=== PATIENT | female | born 1935 | race Hispanic/Latino ===

== ENCOUNTER 2019-09-22 08:36 | Outpatient (CLI) | payer MEDICARE, OTHER ==
--- NOTE | 2019-09-22 09:36 | Mammography Report ---
DIGITAL SCREENING MAMMOGRAM WITH CAD, 09/22/2019 INDICATION: Routine screening mammography. Previous benign biopsies. TECHNIQUE: Digital bilateral 2D mammography was obtained in the craniocaudal and mediolateral obliq ue projections. This examination was interpreted with the benefit of Computer-Aided Detection analysi s. COMPARISON: 09/16/2018 FINDINGS: Breast Density: The breasts are almost entirely fatty. There is no evidence of dominant mass, suspicious calcifications or architectural distortion in eithe r breast. IMPRESSION: No mammographic evidence of malignancy. Follow up recommendation: Routine yearly BI-RADS Category 2: Benign. A "normal" or negative report should not discourage follow up or biopsy of a clinically significant f inding. A written summary of these findings will be mailed to the patient. The patient will be entered into a mammography reporting system which will generate a reminder letter for the patient's next appointmen t at the appropriate interval. The [employer] recommends yearly mammograms starting at age 40 and continuing as l mino as a woman is in good health. Breast MRI is recommended for women with an approximate 20-25% or greater lifetime risk of breast cancer, including women with a strong family history of breast or ova delroy cancer or who have been treated for Hodgkin's disease. Signer Name: Gordon Pearce MD Signed: 09/22/2019 9:31 AM Workstation Name: [id number]
== END 2019-09-22 08:37 | disposition home or self-care (01) ==
LOC: SPVWC 08:36
PROVIDERS: ATTEND Surgery
DX: Z12.31 Encounter for screening mammogram for malignant neoplasm of breast (principal)
CPT/HCPCS: 77067

== ENCOUNTER 2020-09-27 09:47 | Outpatient (CLI) | payer MEDICARE, OTHER ==
--- NOTE | 2020-09-27 17:56 | Mammography Report ---
DIGITAL SCREENING MAMMOGRAM WITH CAD, 09/27/2020 CLINICAL INFORMATION / INDICATION: Routine screening mammography. TECHNIQUE: Digital bilateral 2D mammography was obtained in the craniocaudal and mediolateral obliqu e projections. This examination was interpreted with the benefit of Computer-Aided Detection analysis . COMPARISON: 09/22/2019, 09/16/2018 FINDINGS: Breast Density: The breasts are almost entirely fatty. No dominant mass, suspicious calcifications, or architectural distortion in either breast. A clip is again seen along the posterior depth of the inner left breast. IMPRESSION: No mammographic evidence of malignancy. Follow up recommendation: Routine yearly BI-RADS Category 2: Benign. A "normal" or negative report should not discourage follow up or biopsy of a clinically significant f inding. A written summary of these findings will be mailed to the patient. The patient will be entered into a mammography reporting system which will generate a reminder letter for the patient's next appointmen t at the appropriate interval. The [employer] recommends yearly mammograms starting at age 40 and continuing as l mino as a woman is in good health. Breast MRI is recommended for women with an approximate 20-25% or greater lifetime risk of breast cancer, including women with a strong family history of breast or [place] cancer or who have been treated for Hodgkin's disease. Signer Name: Rome Osorio MD Signed: 09/27/2020 5:52 PM Workstation Name: [id number]
== END 2020-09-27 09:48 | disposition home or self-care (01) ==
LOC: SPVWC 09:47
PROVIDERS: ATTEND Surgery
DX: Z12.31 Encounter for screening mammogram for malignant neoplasm of breast (principal)
CPT/HCPCS: 77063; 77067